=== PATIENT | male | born 1995 | race Caucasian/White ===

== ENCOUNTER 2018-11-03 15:37 | Inpatient (IN) | payer MEDICAID ==
[~2018-11-03] VITALS: Ht 160 cm; Wt 41.8 kg
[2018-11-03] MEDS ORDERED: VITAMIN D250000 UNIT PO (16:13)
[2018-11-03] MEDS ORDERED: NEURONTIN 300300 MG PO (16:13)
[2018-11-03] MEDS ORDERED: APAP325 MG PO (16:14)
[2018-11-03] MEDS ORDERED: OXYCODONE HCL5 M1 PO (16:14)
[2018-11-03] MEDS ORDERED: THEREMS-M1 TAB PO (16:15)
[2018-11-03] MEDS ORDERED: BACTRIM 400-801 TAB PO (16:15)
[2018-11-03] MEDS ORDERED: PROTONIX40 MG PO (16:15)
[2018-11-03 17:59] LABS: BASOPHILS 0.7 % (0-2); EOSINOPHILS 6.1 % (0-7); HEMATOCRIT 37.9 % (42.0-54.0); HEMOGLOBIN 11.5 g/dL (13.5-17.5); IMMATURE GRANULOCYTES 0.4 % (0-5); LYMPHOCYTES 8.6 % (15-50); MCH 21.2 pg (26.0-34.0); MCHC 30.3 g/dL (31.0-37.0); MCV 69.9 fL (80.0-100.0); MEAN PLATELET VOLUME 9.7 fL (7.4-10.4); MONOCYTES 8.8 % (2-11); NEUTROPHILS 75.4 % (40-80); PLATELET COUNT 400 10x3/uL (130-400); RBC 5.42 10x6/uL (4.20-6.10); RDW 14.6 % (11.5-14.5); WBC 8.3 10x3/uL (4.8-10.8)
[2018-11-03 18:13] LABS: ALBUMIN 2.2 g/dL (3.4-5.0); ALKALINE PHOSPHATASE 133 U/L (46-116); ALT (SGPT) 47 U/L (10-68); BILIRUBIN - TOTAL 0.13 mg/dL (0.2-1.3); C-REACTIVE PROTEIN 4.9 mg/dL (0.0-0.9); CALC OSMOLALITY 285 mosm/kg (275-300); CALCIUM 8.3 mg/dL (8.5-10.1); CHLORIDE - SERUM 108 mmol/L (98-107); CREATININE - SERUM 0.5 mg/dL (0.6-1.3); GLUCOSE 93 mg/dL (74-106); MAGNESIUM - SERUM 1.9 mg/dL (1.8-2.4); POTASSIUM - SERUM 3.6 mmol/L (3.5-5.1); PROTEIN - SERUM 5.7 g/dL (6.4-8.2); SODIUM 144 mmol/L (136-145); UREA NITROGEN 9 mg/dL (7-18); eGFR NON AFRICAN AMERICAN > 90 mL/min (90-120)
[2018-11-04] VITALS: BP 114/66
[2018-11-04 04:00] VITALS: BP 96/58
[2018-11-04 07:00] VITALS: BP 106/58
[2018-11-04 08:25] LABS: CALC OSMOLALITY 287 mosm/kg (275-300); CALCIUM 8.1 mg/dL (8.5-10.1); CARBON DIOXIDE 27.2 mmol/L (21.0-32.0); CHLORIDE - SERUM 109 mmol/L (98-107); CREATININE - SERUM 0.6 mg/dL (0.6-1.3); GLUCOSE 94 mg/dL (74-106); POTASSIUM - SERUM 3.2 mmol/L (3.5-5.1); SODIUM 146 mmol/L (136-145); eGFR NON AFRICAN AMERICAN > 90 mL/min (90-120)
[2018-11-04 08:30] LABS: UREA NITROGEN 5 mg/dL (7-18)
[2018-11-04 08:40] LABS: EOSINOPHILS 9.2 % (0-7); HEMATOCRIT 34.7 % (42.0-54.0); HEMOGLOBIN 10.6 g/dL (13.5-17.5); LYMPHOCYTES 10.8 % (15-50); MCH 21.3 pg (26.0-34.0); MCHC 30.5 g/dL (31.0-37.0); MCV 69.8 fL (80.0-100.0); MEAN PLATELET VOLUME 10.1 fL (7.4-10.4); MONOCYTES 8.8 % (2-11); NEUTROPHILS 70.2 % (40-80); PLATELET COUNT 342 10x3/uL (130-400); RBC 4.97 10x6/uL (4.20-6.10); RDW 14.6 % (11.5-14.5)
[2018-11-04 08:50] VITALS: BMI 15.9
[2018-11-04 11:00] VITALS: BP 101/55
[2018-11-04 12:34] LABS: % SATURATION 11 % (15-55); IRON 33 ug/dl (35-150); TOTAL IRON BIND CAPACITY 280 ug/dl (260-445); UNSAT IRON BIND CAPACITY 247 ug/dl (150-375)
[2018-11-04 15:00] VITALS: BP 110/61
[2018-11-04 16:48] VITALS: BP 83/34
--- NOTE | 2018-11-04 17:54 | MORECARE ---
CASE MANAGEMENT DISCHARGE SUMMARY PATIENT: ROLLY CAI UNIT: [id number] ADM DATE: 11/03/18 AGE: 22 : [birth year] SEX: M ROOM/BED: D.2216 AUTHOR: FAUSTINA,DOC PHYSICIAN: REFERRING PHYSICIAN: NIMA TIJERINA MD DATE OF SERVICE: 11/04/18 Discharge Plan Patient Name: ROLLY CAI Facility: [facility]:[place] : 1995 Planned Disposition: Anticipated Discharge Date: 11/06/18 Discharge Date: Expected LOS: 3 Initial Reviewer: [email or web address] Initial Review Date: 11/03/2018 Generated: 11/04/18 6:54 pm DCP- Discharge Planning Updated by [email or web address]: Sheila Junior on 11/04/18 4:[address] Patient Name: ROLLY CAI Admission Status: ER Accout number: [id number] Admission Date: 11-03-2018 : 1995 Admission Diagnosis:ANAL ABSCESS Attending: NIMA TIJERINA Current LOS: 1 Anticipated DC Date: 11-06-2018 Planned Disposition: Primary Insurance: MEDICAID [place] Discharge Planning Comments: CM met with patient to complete initial dc planning assessment. CM educated patient on the CM role and verbal consent given by patient to complete assessment. Patient lives at home with his parents. [place] and has not been established with a PCP or a GI specialist. He reports his previous doctor weaned him off his Crohns medication and he hasn't taken any of the med for approximately one month. He had an ER visit at a different ER and was given a number to a GI doctor but he could never get an answer on the number he was given. At discharge patient plans to return home to his parents and feels this is a safe discharge. Patient denied known discharge needs at this time. CM will continue to follow and will assist as needed with dc plans/needs. Agency Director: Sheila Junior RN, [facility] DCPIA - Discharge Planning Initial Assessment Updated by [email or web address]: Sheila Junior on 11/04/18 5:51 pm * Is the patient Alert and Oriented? Yes * How many steps to enter\exit or inside your home? four * PCP No PCP * Pharmacy No Pharmacy * Preadmission Environment Home with Family * ADLs Independent * Equipment None * List name and contact numbers for known caregivers / representatives who currently or will assist patient after discharge: Camila Cai - MOther - [phone] Ayo Cai - - father - [phone] * Verbal permission to speak to the caregivers and representatives has been obtained from the patient. Yes * Community resources currently utilized None * Additional services required to return to the preadmission environment? No * Can the patient safely return to the preadmission environment? Yes * Has this patient been hospitalized within the prior 30 days at any hospital? No Patient Name: ROLLY CAI Page [id number] at 1754 All edits/amendments must be made on the electronic document DICTATION DATE: 11/04/181753 MICROECONOMICS PROFESSOR: AVELINA 11/04/181753 RPT#: [id number] DC DATE: STATUS: ADM IN [facility] [address] [place] [address] END OF REPORT
[2018-11-04 18:27] VITALS: Ht 160 cm; Wt 41.8 kg
[2018-11-05 00:46] VITALS: BP 85/38
[2018-11-05 05:24] VITALS: BP 92/52
[2018-11-05 07:12] LABS: BASOPHILS 0 % (0-2); EOSINOPHILS 0.1 % (0-7); HEMATOCRIT 37.6 % (42.0-54.0); HEMOGLOBIN 11.1 g/dL (13.5-17.5); IMMATURE GRANULOCYTES 0.1 % (0-5); MCH 21.1 pg (26.0-34.0); MCHC 29.5 g/dL (31.0-37.0); MCV 71.6 fL (80.0-100.0); MEAN PLATELET VOLUME 10.5 fL (7.4-10.4); NEUTROPHILS 94.8 % (40-80); PLATELET COUNT 351 10x3/uL (130-400); RBC 5.25 10x6/uL (4.20-6.10); RDW 14.5 % (11.5-14.5)
[2018-11-05 07:16] LABS: WBC 7.6 10x3/uL (4.8-10.8)
[2018-11-05 07:21] LABS: FOLATE (FOLIC ACID) - SERUM 17.7 ng/mL (>3.0)
[2018-11-05 07:29] LABS: CALCIUM 8.4 mg/dL (8.5-10.1); CARBON DIOXIDE 24.5 mmol/L (21.0-32.0); CHLORIDE - SERUM 107 mmol/L (98-107); CREATININE - SERUM 0.6 mg/dL (0.6-1.3); GLUCOSE 120 mg/dL (74-106); SODIUM 141 mmol/L (136-145); eGFR NON AFRICAN AMERICAN > 90 mL/min (90-120)
[2018-11-05 07:30] LABS: CALC OSMOLALITY 279 mosm/kg (275-300); POTASSIUM - SERUM 3.7 mmol/L (3.5-5.1); UREA NITROGEN 8 mg/dL (7-18)
[2018-11-05 19:06] LABS: APPEARANCE CLEAR (CLEAR); BILIRUBIN NEGATIVE (NEGATIVE); COLOR YELLOW (YELLOW); EPITHELIAL CELLS NSEEN /hpf (0-5); GLUCOSE 100 mg/dL (NEGATIVE); KETONE NEGATIVE (NEGATIVE); NITRITE NEGATIVE (NEGATIVE); PROTEIN NEGATIVE (NEGATIVE); RED CELLS - URINE NONE SEEN /hpf (0-5); UROBILINOGEN NORMAL (NORMAL); WHITE CELLS - URINE NSEEN /hpf (0-5)
[2018-11-05 20:42] VITALS: BP 97/39
[2018-11-06 08:22] LABS: BASOPHILS 0.1 % (0-2); EOSINOPHILS 0.1 % (0-7); HEMATOCRIT 32.3 % (42.0-54.0); HEMOGLOBIN 9.5 g/dL (13.5-17.5); IMMATURE GRANULOCYTES 0.5 % (0-5); LYMPHOCYTES 3.8 % (15-50); MCH 20.9 pg (26.0-34.0); MCHC 29.4 g/dL (31.0-37.0); MCV 71.1 fL (80.0-100.0); MEAN PLATELET VOLUME 10.4 fL (7.4-10.4); MONOCYTES 6.6 % (2-11); NEUTROPHILS 88.9 % (40-80); PLATELET COUNT 353 10x3/uL (130-400); RBC 4.54 10x6/uL (4.20-6.10); RDW 14.6 % (11.5-14.5)
[2018-11-06 08:27] LABS: WBC 11.5 10x3/uL (4.8-10.8)
[2018-11-06 08:48] VITALS: BP 103/30
[2018-11-06 08:48] LABS: CALC OSMOLALITY 284 mosm/kg (275-300); CALCIUM 7.3 mg/dL (8.5-10.1); CARBON DIOXIDE 27.1 mmol/L (21.0-32.0); CHLORIDE - SERUM 110 mmol/L (98-107); CREATININE - SERUM 0.6 mg/dL (0.6-1.3); GLUCOSE 103 mg/dL (74-106); POTASSIUM - SERUM 3.5 mmol/L (3.5-5.1); PRE-ALBUMIN 17.6 mg/dL (18.0-35.7); SODIUM 144 mmol/L (136-145); UREA NITROGEN 7 mg/dL (7-18); eGFR NON AFRICAN AMERICAN > 90 mL/min (90-120)
[2018-11-06 16:10] VITALS: BP 105/32
[2018-11-06 21:13] VITALS: BP 100/47
[2018-11-07] VITALS: BP 123/54
[2018-11-07 03:00] VITALS: BP 98/55
[2018-11-07 06:25] LABS: CALC OSMOLALITY 280 mosm/kg (275-300); CALCIUM 7.6 mg/dL (8.5-10.1); CARBON DIOXIDE 27.4 mmol/L (21.0-32.0); CHLORIDE - SERUM 108 mmol/L (98-107); CREATININE - SERUM 0.5 mg/dL (0.6-1.3); GLUCOSE 97 mg/dL (74-106); MAGNESIUM - SERUM 1.8 mg/dL (1.8-2.4); POTASSIUM - SERUM 3.5 mmol/L (3.5-5.1); SODIUM 142 mmol/L (136-145); UREA NITROGEN 7 mg/dL (7-18); eGFR NON AFRICAN AMERICAN > 90 mL/min (90-120)
[2018-11-07 07:53] LABS: HEMATOCRIT 31.9 % (42.0-54.0); HEMOGLOBIN 9.5 g/dL (13.5-17.5); MCHC 29.8 g/dL (31.0-37.0); MCV 70.6 fL (80.0-100.0); MEAN PLATELET VOLUME 10.2 fL (7.4-10.4); PLATELET COUNT 355 10x3/uL (130-400); RBC 4.52 10x6/uL (4.20-6.10); RDW 14.7 % (11.5-14.5); WBC 13.1 10x3/uL (4.8-10.8)
[2018-11-07 08:06] VITALS: BP 97/40
[2018-11-07 08:36] LABS: ANISOCYTOSIS OCC; LYMPHOCYTES 7 % (15-50); MONOCYTES 8 % (2-11); NEUTROPHILS 81 % (40-80); PLATELET ESTIMATE NORMAL
[2018-11-07] MEDS ORDERED: THERAGRAN M [BK1 TAB PO (10:22)
[2018-11-07] MEDS ORDERED: FLORAJEN3 CAPS460 MG PO (10:22)
[2018-11-07] MEDS ORDERED: ZOFRAN4 MG PO (10:22)
[2018-11-07] MEDS ORDERED: FLAGYL500 MG PO (10:23)
[2018-11-07] MEDS ORDERED: LEVOFLOXACIN500 MG PO (10:23)
[2018-11-07] MEDS ORDERED: AZULFIDINE500 MG PO (10:25)
[2018-11-07] MEDS ORDERED: PREDNISONE10 MG PO (10:26)
--- NOTE | 2018-11-07 10:31 | MORECARE ---
CASE MANAGEMENT DISCHARGE SUMMARY PATIENT: ROLLY CAI UNIT: [id number] ADM DATE: 11/03/18 AGE: 22 : [birth year] SEX: M ROOM/BED: D.2216 AUTHOR: FAUSTINA,DOC PHYSICIAN: REFERRING PHYSICIAN: NIMA TIJERINA MD DATE OF SERVICE: 11/07/18 Discharge Plan Patient Name: ROLLY CAI Facility: [facility]:[place] : 1995 Planned Disposition: Anticipated Discharge Date: 11/06/18 Discharge Date: Expected LOS: 3 Initial Reviewer: [email or web address] Initial Review Date: 11/03/2018 Generated: 11/07/18 11:31 am Comments DCP- Discharge Planning Updated by [email or web address]: Fabienne Cruz on 11/07/18 9:[address] 11/06/2018 LATE ENTRY RECEIVED REFERRAL FOR POSSIBLE FREE OR REDUCED PROGRAM FOR ENSURE AT DISCHARGE. NO DIETITAN ON SUNDAYS. 11/07/18 1015 TC TO YOLANDE , THE DIETITIAN , TO DISCUSS REFERRAL AND IF HE WAS AWARE OF ANY PROGRAMS. HE ALSO HAS A CONSULT. HE IS NOT AWARE OF ANY PROGRAM. STATES PATIENT MAY TRY EQUATE AT [facility]. HE WILL BE SEEING THE PATIENT TODAY. DCP- Discharge Planning Updated by [email or web address]: Sheila Junior on 11/04/18 4:[address] Patient Name: ROLLY CAI Admission Status: ER Accout number: [id number] Admission Date: 11-03-2018 : 1995 Admission Diagnosis:ANAL ABSCESS Attending: NIMA TIJERINA Current LOS: 1 Anticipated DC Date: 11-06-2018 Planned Disposition: Primary Insurance: MED[place]ID [place] Discharge Planning Comments: CM met with patient to complete initial dc planning assessment. CM educated patient on the CM role and verbal consent given by patient to complete assessment. Patient lives at home with his parents. [place] and has not been established with a PCP or a GI specialist. He reports his previous doctor weaned him off his Crohns medication and he hasn't taken any of the med for approximately one month. He had an ER visit at a different ER and was given a number to a GI doctor but he could never get an answer on the number he was given. At discharge patient plans to return home to his parents and feels this is a safe discharge. Patient denied known discharge needs at this time. CM will continue to follow and will assist as needed with dc plans/needs. Soldering Technician: Sheila Junior RN, [facility] DCPIA - Discharge Planning Initial Assessment Updated by [id number]: Sheila Junior on 11/04/18 5:51 pm * Is the patient Alert and Oriented? Yes * How many steps to enter\exit or inside your home? four * PCP No PCP * Pharmacy No Pharmacy * Preadmission Environment Home with Family * ADLs Independent * Equipment None * List name and contact numbers for known caregivers / representatives who currently or will assist patient after discharge: Camila Cai - MOther - [phone] Ayo Cai - - father - [phone] * Verbal permission to speak to the caregivers and representatives has been obtained from the patient. Yes * Community resources currently utilized None * Additional services required to return to the preadmission environment? No * Can the patient safely return to the preadmission environment? Yes * Has this patient been hospitalized within the prior 30 days at any hospital? No Last DP export: 11/04/18 4:54 pm Patient Name: ROLLY CAI Page [id number] at 1031 All edits/amendments must be made on the electronic document DICTATION DATE: 11/07/18 1030 PAYROLL ACCOUNTANT: AVELINA 11/07/18 1030 RPT#: [id number] DC DATE: STATUS: ADM IN [facility] [address] [place] [address] END OF REPORT
[2018-11-07 12:40] VITALS: BP 90/38
[2018-11-07] MEDS ORDERED: OXYCODONE HCL5 M1 PO (12:57)
--- NOTE | 2018-11-07 14:26 | MORECARE ---
CASE MANAGEMENT DISCHARGE SUMMARY PATIENT: ROLLY CAI UNIT: [id number] ADM DATE: 11/03/18 AGE: 22 : [birth year] SEX: M ROOM/BED: D.2216 AUTHOR: FAUSTINA,DOC PHYSICIAN: REFERRING PHYSICIAN: NIMA TIJERINA MD DATE OF SERVICE: 11/07/18 Discharge Plan Patient Name: ROLLY CAI Facility: [facility]:[place] : 1995 Planned Disposition: Anticipated Discharge Date: 11/06/18 Discharge Date: Expected LOS: 3 Initial Reviewer: [email or web address] Initial Review Date: 11/03/2018 Generated: 11/07/18 3:26 pm Comments DCP- Discharge Planning Updated by [email or web address]: Alice Parkinson on 11/07/18 1:[address] PATIENT DISCHARGING HOME, NO NEEDS FROM A CM STANDPOINT. DCP- Discharge Planning Updated by [email or web address]: Fabienne Cruz on 11/07/18 9:[address] 11/06/2018 LATE ENTRY RECEIVED REFERRAL FOR POSSIBLE FREE OR REDUCED PROGRAM FOR ENSURE AT DISCHARGE. NO DIETITAN ON SUNDAYS. 11/07/18 1015 TC TO YOLANDE , THE DIETITIAN , TO DISCUSS REFERRAL AND IF HE WAS AWARE OF ANY PROGRAMS. HE ALSO HAS A CONSULT. HE IS NOT AWARE OF ANY PROGRAM. [facility] PATIENT MAY TRY EQUATE AT [facility]. HE WILL BE SEEING THE PATIENT TODAY. DCP- Discharge Planning Updated by [email or web address]: Sheila Junior on 11/04/18 4:[address] Patient Name: ROLLY CAI Admission Status: ER Accout number: [id number] Admission Date: 11-03-2018 : 1995 Admission Diagnosis:ANAL ABSCESS Attending: NIMA TIJERINA Current LOS: 1 Anticipated DC Date: 11-06-2018 Planned Disposition: Primary Insurance: MEDICAID [place] Discharge Planning Comments: CM met with patient to complete initial dc planning assessment. CM educated patient on the CM role and verbal consent given by patient to complete assessment. Patient lives at home with his parents. [place] and has not been established with a PCP or a GI specialist. He reports his previous doctor weaned him off his Crohns medication and he hasn't taken any of the med for approximately one month. He had an ER visit at a different ER and was given a number to a GI doctor but he could never get an answer on the number he was given. At discharge patient plans to return home to his parents and feels this is a safe discharge. Patient denied known discharge needs at this time. CM will continue to follow and will assist as needed with dc plans/needs. Plate Setter: Sheila Junior RN, [facility] DCPIA - Discharge Planning Initial Assessment Updated by [email or web address]: Sheila Junior on 11/04/18 5:51 pm * Is the patient Alert and Oriented? Yes * How many steps to enter\exit or inside your home? four * PCP No PCP * Pharmacy No Pharmacy * Preadmission Environment Home with Family * ADLs Independent * Equipment None * List name and contact numbers for known caregivers / representatives who currently or will assist patient after discharge: Camila Cai - MOther - [phone] Ayo Cai - - father - [phone] * Verbal permission to speak to the caregivers and representatives has been obtained from the patient. Yes * Community resources currently utilized None * Additional services required to return to the preadmission environment? No * Can the patient safely return to the preadmission environment? Yes * Has this patient been hospitalized within the prior 30 days at any hospital? No Last DP export: 11/07/18 9:31 am Patient Name: ROLLY CAI Page [id number] at 1426 All edits/amendments must be made on the electronic document DICTATION DATE: 11/07/18 142 POLICE JUSTICE: AVELINA 11/07/18 142 RPT#: [id number] DC DATE:11/07/18 STATUS: DIS IN [facility] [address] [place] [address] END OF REPORT
== END 2018-11-07 14:25 | disposition home or self-care (01) | DRG 385 ==
LOC: D.ER 15:37 → D.EDHOLD 21:43 → D.MS 21:43
PROVIDERS: Family Medicine; ADMIT Internal Medicine Nephrology
DX: K50.90 Crohn's disease, unspecified, without complications (principal); E43 Unspecified severe protein-calorie malnutrition; K61.0 Anal abscess; Z68.1 Body mass index [BMI] 19.9 or less, adult; D50.9 Iron deficiency anemia, unspecified; D72.1 Eosinophilia; E87.6 Hypokalemia

== ENCOUNTER → 2019-01-18 09:12 | Outpatient (CLI) | payer MEDICAID ==
[~2019-01-18 09:12] MED LIST: APAP325 MG PO; AZULFIDINE500 MG PO; BACTRIM 400-801 TAB PO; FLAGYL500 MG PO; FLORAJEN3 CAPS460 MG PO; LEVOFLOXACIN500 MG PO; NEURONTIN 300300 MG PO; OXYCODONE HCL5 M1 PO; PREDNISONE10 MG PO; PROTONIX40 MG PO; THERAGRAN M [BK1 TAB PO; THEREMS-M1 TAB PO; VITAMIN D250000 UNIT PO; ZOFRAN4 MG PO
== END | disposition home or self-care (01) ==
LOC: D.LAB 09:12
PROVIDERS: ATTEND Internal Medicine Gastroenterology
DX: K50.90 Crohn's disease, unspecified, without complications (principal)